=== PATIENT | female | born 1965 | race Caucasian/White ===

== ENCOUNTER 2024-10-17 10:38 | Outpatient (CLI) | payer BC, SELFPAY ==
--- NOTE | ~2024-10-17 | US_ITS ---
Pelvic ultrasound. Clinical History: Pelvic pain Technique: Realtime transabdominal and transvaginal scanning of the pelvis was performed. Color flow Doppler and Doppler spectral analysis were performed. Findings: The uterus is anteverted. The endometrial stripe has a thickness of 2 mm. No focal myometr ial mass is identified. Mildly complex cervical nabothian cysts present. Neither ovary seen. No adnexal mass seen. There is no evidence of free fluid in the cul de sac. Impression: No significant abnormality seen. Neither ovary visualized. Reviewed, dictated and finalized at location . Impression: No significant abnormality seen. Neither ovary visualized.
--- OUTSIDE RECORDS SUMMARY | 2024-10-17 11:26 | XMS_ITS | Clinical Summary ---
Author Organization [facility] Medical Office Building B Address [address] [place] [address] Care Team Providers Care Sweatband Perforator Name Role Phone Bhavik Rivas MD Primary Care Provider Jayna Holt MD Unavailable [phone] Vivek Bright MD Unavailable [phone] Allergies Active Allergy Reactions Criticality Noted Date Comments Other Rash Medium 02/27/2018 Uni solve Sulfa (Sulfonamide Antibiotics) Rash Reaction: rash, Sulfasalazine Rash Medium 12/20/2017 Medications magnesium oxide 400 mg magnesium capsule Take 400 mg by mouth 2 (two) times a day Active pimecrolimus (ELIDEL) 1 % cream Apply topically as needed Active triamterene-hy droCHLOROthiaz naseem 37.5-25 mg per tablet/capsule TAKE 1 TABLET BY MOUTH EVERY DAY 90 tablet 10/08/19 25 Active simvastatin (ZOCOR) 80 mg tablet TAKE 1 TABLET BY MOUTH EVERY DAY AT NIGHT 90 tablet 10/08/19 25 Active triamterene-hy droCHLOROthiaz naseem 37.5-25 mg per tablet/capsule TAKE 1 TABLET BY MOUTH EVERY DAY 100 tablet 07/14/20 24 025 Discontinued simvastatin (ZOCOR) 80 mg tablet TAKE 1 TABLET BY MOUTH EVERY DAY AT NIGHT 100 tablet 07/14/20 24 025 Discontinued Active Problems Problem Noted Date Diagnosed Date History of 2019 novel coronavirus disease (COVID -19) 01/22/2021 Well adult exam 01/22/2021 Assessment & Plan (02/06/2024 1:48 PM CDT): A(n) yearly well adult visit has been performed today. Zeinab Arteaga is not up to date on screening tests. She is in need of hep b screening and Cholesterol screening. She is not up to date on needed preventative vaccinations; She is in need of Zoster. We discussed healthy lifestyle habits, educational material has been given. Medications reviewed, changes documented as per the medical record and discussed with patient along with risks vs benefits. Return in 1 year Assessment & Plan (01/30/2023 12:59 PM CDT): A(n) yearly well adult visit has been performed today. Zeinab Arteaga is not up to date on screening tests. She is in need of Breast cancer screening and Cholesterol screening- mammogram due next month. She is not up to date on needed preventative vaccinations; She is in need of Zoster. We discussed healthy lifestyle habits, educational material has been given. Medications reviewed, changes documented as per the medical record and discussed with patient along with risks vs benefits. Return in 1 year Anemia 12/14/2013 Overview (11/02/2016): Anemia Pure hypercholesterolemia 12/14/2013 Overview (11/04/2016): PURE HYPERCHOLESTEROLEM Benign hypertension 12/14/2013 Overview (11/04/2016): BENIGN HYPERTENSION Resolved Problems Problem Noted Date Diagnosed Date Resolved Date Allergic contact dermatitis of eyelid of right eye 10/24/2018 01/22/2021 Assessment & Plan (10/24/2018 11:00 AM CDT): Since she continues to experience swelling of eyelid in the mornings, will do medrol dose yoselin. Then will apply eucrisa twice daily until healed. Call if no improvement over the next couple of weeks. F/u prn Immunizations Immunization Administration Dates Next Due Influenza, Quadrivalent, Spl it, Preservative Free, Intramuscular 04/27/2023 Influenza, Unspecified 07/31/2022(Deferr ed: Patient Refused),07/31/2021(Deferred: Patient Refused),07/31/2021(Deferred: Patient Refused),07/31/2020(Deferred: Patient Refused),04/30/2020,05/01/2019, 018,04/18/2017 Pfizer SARS-CoV-2 Monovalent Vaccination (12+ Yrs) PURPLE 12/22/2020,12/01/2020 Tdap 10/21/2020 Surgical History Surgery Date Site/Laterality Comments OTHER SURGICAL HISTORY 07/31/2012 - 07/30/2013 menorrhagia: D&C OTHER SURGICAL HISTORY 07/31/2012 - 07/30/2013 menometrorrhagia: endometrial ablation NOS LASIK 07/31/2006 - 07/30/2007 myopia: lasik COLONOSCOPY 12/06/2010 Medical History Medical History Date Comments Hx Other Medical myopia Hx Other Medical menorrhagia Hx Other Medical menometrorrhagi a; Outcome: improved Anemia Corrected after abla felecia surgery Clotting disorder Corrected with ablas ion surgery Infectious viral hepatitis Markers for C , however none present with 2nd test Hypertension Family History Medical History Relation Name Comments Esophageal cancer Father Cancer -es ophageal; Hypertension Father Hypertension; Breast cancer Mother Zuleyka Wall Cancer -breast ; Cancer Mother Zuleyka Wall Diabetes type II Mother Zuleyka Wall Diabetes -T ype II; Hypertension Mother Zuleyka Wall Hypertension; Stomach cancer Paternal Grandfather Pulmonary embolism Sister 3 Shijavon Rashes / Skin problems Sister 4 [facility] Relation Name Status Comments Father Maternal Grandfather Maternal Grandmother Mother Zuleyka Wall Paternal Grandfather Paternal Grandmother Sister 1 Alive Sister 2 Alive Sister 3 Shielia [address] Alive Social History Tobacco Use Types Packs/Day Years Used Date Smoking Tobacco: Never Passive Smoke Exposure: Never Smokeless Tobacco: Never Alcohol Use Standard Drinks/Week Comments Not Currently 0 (1 standard drink = 0.6 oz pur e alcohol) occasionally only Humiliation, Afraid, Rape, and Kick questionnair e Answer Date Recorded Within the last year, have y ou been afraid of your partner or ex-partner? No 01/24/2022 Within the last year, have y ou been humiliated or emotionally abused in other ways by your partner or ex-partner? No Within the last year, have y ou been kicked, hit, slapped, or otherwise physically hurt by your partner or ex-partner? No 01/24/2022 Within the last year, have y ou been raped or forced to have any kind of sexual activity by your partner or ex-partner? No 01/24/2022 Social Connection and Isolation Panel [NHANES] A nswer Date Recorded Frequency of Communication with Friends and Fami ly Not on file 01/25/2022 Frequency of Social Gatherings with Friends and Family Not on file 01/25/2022 Attends Alevism Services Not on file 01/25 Active Member of Clubs or Organizations Not on f ile 01/25/2022 Attends Club or Organization Meetings Not on maci e 01/25/2022 Are you , , di vorced, , never , or living with a partner? 01/25/2022 AUDIT-C Answer Date Recorded Q1: How often do you have a drink containing alc ohol? 2-4 times a month 01/24/2022 Q2: How many drinks containi ng alcohol do you have on a typical day when you are drinking? 1 or 2 01/24/2022 Q3: How often do you have si x or more drinks on one occasion? Never 01/24/2022 Overall Financial Resource Strain (CARDIA) Answe r Date Recorded How hard is it for you to pa y for the very basics like food, housing, medical care, and heating? Not hard at all 01/24/2022 PHQ-2 Answer Date Recorded PHQ-2 Total Score (If total score is 3 or more points, staff should administer the PHQ-9) 0 02/06/2024 [facility]ational Stress Questionnaire Answer Date Recorded Do you feel stress - tense, restless, nervous, or anxious, or unable to sleep at night because your mind is troubled all the time - these days? To some extent 01/24/2022 Exercise Vital Sign Answer Date Recorde d On average, how many days pe r week do you engage in moderate to strenuous exercise (like a brisk walk)? 7 days 01/22/2020 On average, how many minutes do you engage in exercise at this level? 30 min 01/22/2020 Hunger Vital Sign Answer Date Recorded Within the past 12 months, y ou worried that your food would run out before you got the money to buy more. Never true 01/25/20 22 Within the past 12 months, t he food you bought just didn't last and you didn't have money to get more. Never true 01/24/2022 PRAPARE - Transportation Answer Date Re corded In the past 12 months, has l ack of transportation kept you from medical appointments or from getting medications? No 12/30 In the past 12 months, has l ack of transportation kept you from meetings, work, or from getting things needed for daily living? No 01/24/2022 Housing Stability Vital Sign Answer Jayson e Recorded Unable to Pay for Housing in the Last Year Not o n file 01/24/2022 In the last 12 months, how many places have you lived? 2 01/24/2022 In the last 12 months, was t here a time when you did not have a steady place to sleep or slept in a alf (including now)? No 01/24/2022 Education Answer Date Recorded What is the highest level of school you have completed or the highest degree you have received? 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 Not on file Not on file Not on file Obstetrics History Para Term AB IAB SAB Ectopic Multiple Livin g Live Births 3 3 3 Date Outcome GA Total Labor Labor/2nd/3rd Weight Sex Type Anes PTL Jenni A1 A5 Name Clin Term Term Term Last Filed Vital Signs Vital Sign Reading Time Taken Comments Blood Pressure 120/80 02/06/2024 1:31 PM CDT Pulse 86 02/06/2024 1:31 PM CDT Temperature 36.1 C (96.9 F) 02/06/2024 1:31 PM CDT Respiratory Rate 14 02/06/2024 1:31 PM CDT Oxygen Saturation 98% 02/06/2024 1:31 PM CDT Inhaled Oxygen Concentration - - Weight 64 kg (141 lb) 02/06/2024 1:31 PM CDT Height 165.1 cm (5' 5 ) 02/06/2024 1:31 PM CDT Body Mass Index 23.46 02/06/2024 1:31 PM CDT Plan of Treatment Health Maintenance Due Date Last Done Comments Hepatitis B Screening 1981 Zoster Vaccine (1 of 2) 2013 Covid-19 Vaccine ( season) 2024 04/27/2023, 12/22/2020, 12/01/2020 Influenza Vaccine (#1) 2024 , 04/30/2020, 05/01/2019, Additional history exists Cervical Cancer Screening 10/08/2024 10/09/2023 Depression Screening 02/05/2025 02/06/2024, 01/26/2023, 01/24/2022, Additional history exists Regular Well Visit/Exam 18-64 02/05/2025 02/06/2024, 01/26/2023, 01/24/2022, Additional history exists Breast Cancer Screening-Mammogram 05/17/2025 05/17/2024, 03/25/2023, 02/23/2022, Additional history exists DTaP/Tdap/Td Vaccine (2 - Td or Tdap) 10/21/2030 10/21/2020 Colon Cancer Screening-Colonoscopy 08/02/2031 08/02/2021, 12/06/2010, 12/06/2010 Hepatitis C Screening Completed 05/11/2017, 017 Colon Cancer Screening-CT Colonography Discontinued 08/02/2021, 12/06/2010, 12/06/2010 Colon Cancer Screening-DNA Stool Discontinued 08/02/2021, 12/06/2010, 12/06/2010 Colon Cancer Screening-FIT Discontinued 08/02, 12/06/2010, 12/06/2010 Colon Cancer Screening-Sigmoidoscopy Discontinued 08/02/2021, 12/06/2010, 12/06/2010 Pneumococcal vaccine <65 Aged Out No longer eligible based on patient's age to complete this topic Procedures Procedure Name Priority Date/Time Associated Diagnosis Comments SCREENING MAMMOGRAM BILATERAL W MYRON Schedule Routine, Read Routine (OP Routine) 05/17/2024 8:19 AM CDT Screening mammogram, encounter for HM PAP SMEAR WITH HPV Routine 10/09/2023 3:24 PM CDT COLONOSCOPY 08/02/2021 7:26 AM SENIOR ENERGY ANALYST HEPATITIS C RNA, QUANTITATIVE, PCR Routine 05/11/2017 12:06 PM CDT Positive hepatitis C antibody test from Last 3 Months or Most Recently Relevant to Health Maintenance Results * Screening Mammogram Bilateral W Myron (05/17/2024 8:19 AM CDT) Anatomical Region Laterality Modality Breast Bilateral Mammography 05/17/2024 9:03 AM CDT Impressions 05/17/2024 9:03 AM CDT No evidence of malignancy in either breast. FINAL ASSESSMENT: BI-RADS Category 2: Benign. RECOMMENDATION: Recommend return for annual screening mammogram in 12 months. Electronically signed by: Addy Mar M.D. Narrative 05/17/2024 9:03 AM CDT EXAMINATION: BILATERAL SCREENING MAMMOGRAM COMPARISON: 03/25/2023, 02/23/2022, 02/12/2021, 02/05/2020 TECHNIQUE: Full-field 2D and digital breast tomosynthesis (DBT) images were obtained. CAD was utilized. BREAST PARENCHYMAL COMPOSITION: There are scattered areas of fibroglandular density. FINDINGS: A small benign-appearing oval circumscribed mass in the upper inner left breast, middle depth, has not suspiciously changed. There is no new suspicious finding in either breast on mammogram. us Self Screening Mammogram IMG MAMMO PROCEDURES Fi nal Result * HM PAP SMEAR WITH HPV (10/09/2023 3:24 PM CDT) us Historical Provider HEALTH MAINTENANCE Final Result * COLONOSCOPY (08/02/2021 7:26 AM SENIOR ENERGY ANALYST) Anatomical Region Laterality Modality Other Narrative Procedure Note Juliano Barba MD - 08/02/2021 7:26 AM CST [facility] Patient Name: Zeinab Munoz Procedure Date: 08/02/2021 7:26 AM Date of : 1965 Admit Type: Outpatient Age: 56 Gender: Female Attending MD: Juliano Barba M.D. Room: [facility] 2 Note Status: Finalized Patient Profile: Refer to note in patient chart for documentation of history and physical. Procedure: Colonoscopy Indications: Screening for colorectal malignant neoplasm, Last colonoscopy: November 2010 Referring MD: Bhavik Rivas M.D. Providers: Juliano Barba M.D. Impression: - Hemorrhoids found on perianal exam. - Diverticulosis in the sigmoid colon, in the descending colon and in the transverse colon. - The examination was otherwise normal. - No specimens collected. Recommendation: - Discharge patient to home. - Resume previous diet. - Continue present medications. - Repeat colonoscopy in 10 years for screening purposes. - Return to primary care physician as previously scheduled. Medicines: Propofol per Anesthesia Complications: No immediate complications. Estimated Blood Loss: Estimated blood loss: none. Procedure: Pre-Anesthesia Assessment: - This assessment was completed [Time ofAssessment] prior to the administration of sedation. The benefits, risks and alternatives of theprocedure and sedation were discussed and informed consentwas obtained. All questions were answered. Please referto the signed informed consent document in the medical record. The bowel preparation used was Miralax via single dose instruction. The bowel preparation used was bisacodyl tablets via single dose instruction.The scope was passed under direct vision. TheColonoscope [id number] was introduced through the anus and advanced to the the cecum, identified by appendiceal orifice and ileocecal valve. The colonoscopy was performed without difficulty. The patient tolerated the procedure well. The qualityof the bowel preparation was excellent. Findings: Hemorrhoids were found on perianal exam. A few small-mouthed diverticula were found in the sigmoid colon, descending colon and transverse colon. The exam was otherwise without abnormality. Electronically signed by Juliano Barba M.D. Juliano Barba M.D. 08/02/2021 8:24:59 AM Number of Addenda: 0 Note Initiated On: 08/02/2021 7:26 AM Procedure Code(s): --- Professional --- G0121, Colorectal cancer screening; colonoscopy on individual not meeting criteria for high risk Diagnosis Code(s): --- Professional --- K57.30, Diverticulosis of large intestine without perforation orabscess without bleeding K64.9, Unspecified hemorrhoids Z12.11, Encounter for screening for malignant neoplasm of colon CPT copyright 2019 [employer]. All rights reserved. The codes documented in this report are preliminary and upon senior windows systems administrator reviewmay be revised to meet current compliance requirements. Recognized by the [employer] for promoting quality in endoscopy Juliano Barba MD ENDOSCOPY PROCEDURES Final Re sult * Hepatitis C RNA, quantitative, PCR (05/11/2017 12:06 PM CDT) HCV RNA qn Undetected Undetected IUnits/mL BECKY BATISTA Comment: Result in log IU/mL is Undetected. ADDITIONAL INFORMATION The quantification range of this assay is 15 to 100,000,000 IU/mL (1.18 log to 8.00 log IU/mL). Testing was performed using the joseph HCV test ([employer] with the joseph 6800 System. Test Performed by: [facility] [address] [place] [address] Blood specimen (specimen) 05/11/2017 12:06 PM CDT 05/11/2017 3:32 PM CDT Bhavik Rivas MD LAB MICROBIOLOGY - GENERAL ORDERABLES Final Result BECKY [id number] Department of Laboratories [place], [place] [id number] from Last 3 Months or Most Recently Relevant to Health Maintenance Insurance [employer]ap OOS [employer] OOS BLUE ACC CHOICE OOS Advance Directives For more information, please contact: [phone] * Full Code (Latest Code Status on File) Date Activated Date Inactivated Comments 08/02/2021 7:25 AM 08/02/2021 1:16 PM Care Teams Sweatband Perforator Relationship Specialty Start Date End Date Bhavik Rivas MD PCP - General 10/28/16 Jayna Holt MD [address] [place] [address] Consulting Physician Dermatology 05/22/19 Vivek Bright MD [address] [place], [place] [id number] Referring Physician Obstetrics and Gynecology 02/06/24
--- OUTSIDE RECORDS SUMMARY | 2024-10-17 11:26 | XMS_ITS | Referral Summary ---
Author Organization [facility] Medical Office Building B Address [address] [place] [address] Care Team Providers Care Ripsaw Matcher Name Role Phone Bhavik Rivas MD Primary Care Provider Jayna Holt MD Unavailable [phone] Vivek Bright MD Unavailable [phone] Allergies Active Allergy Reactions Criticality Noted Date [...] Vaccination (12+ Yrs) PURPLE 12/22/2020,12/01/2020 Tdap 10/21/2020 Social History Tobacco Use Types Packs/Day Years [...] and Family Not on file 01/25/2022 Attends [employer] Services Not on file 01/25 Active Member [...] staff should administer the PHQ-9) 0 02/06/2024 [facility] - Occupational Stress Questionnaire Answer Date Recorded [...] place to sleep or slept in a detention (including now)? No 01/24/2022 Education Answer Date Recorded What is the highest level of school you have completed or the highest degree you have received? 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 Not on file Not on file Last Filed Vital Signs Vital Sign Reading [...] 02/06/2024 1:31 PM CDT Plan of Treatment Not on file Procedures Procedure Name Priority Date/Time Associated Diagnosis Comments SCREENING MAMMOGRAM BILATERAL W MYRON Schedule Routine, Read Routine (OP Routine) 05/17/2024 8:19 AM CDT Screening mammogram, encounter for HM PAP SMEAR WITH HPV Routine 10/09/2023 3:24 PM CDT COLONOSCOPY 08/02/2021 7:26 AM FLUME WORKER HEPATITIS C RNA, QUANTITATIVE, PCR Routine 05/11/2017 [...] SMEAR WITH HPV (10/09/2023 3:24 PM CDT) Historical Provider HEALTH MAINTENANCE Final Result * COLONOSCOPY (08/02/2021 7:26 AM FLUME WORKER) Anatomical Region Laterality Modality Other Narrative Procedure Note Juliano Barba MD - 08/02/2021 7:26 AM CST [facility] Patient Name: Zeinab Munoz Procedure Date: 08/02/2021 7:26 AM Date of : 1965 Admit Type: Outpatient Age: 56 Gender: Female Attending MD: Juliano Barba M.D. Room: [facility] ROOM 2 Note Status: Finalized Patient Profile: [...] scope was passed under direct vision. TheColonoscope [id number] was introduced through the anus and advanced [...] malignant neoplasm of colon CPT copyright 2019 [employer]. All rights reserved. The codes documented in this report are preliminary and upon certified procedural coder reviewmay be revised to meet current compliance requirements. Recognized by the [employer] for promoting quality in endoscopy us Juliano Barba MD ENDOSCOPY PROCEDURES Final Re sult * Hepatitis C RNA, quantitative, PCR (05/11/2017 12:06 PM CDT) HCV RNA qn Undetected Undetected IUnits/mL BECKY BATISTA Comment: Result in log IU/mL is Undetected. ADDITIONAL INFORMATION The quantification range of this assay is 15 to 100,000,000 IU/mL (1.18 log to 8.00 log IU/mL). Testing was performed using the joseph HCV test ([employer] with the joseph 6800 System. Test Performed by: [place] [address] Blood specimen (specimen) 05/11/2017 12:06 PM CDT 05/11/2017 3:32 PM CDT us Bhavik Rivas MD LAB MICROBIOLOGY - GENERAL ORDERABLES Final Result BECKY BATISTA [id number] Department [place] [address] from Last 3 Months or Most Recently Relevant to Health Maintenance Insurance BLUE ACCESS OOS Member Subscriber Plan / Payer (Ef fective 2015-Present) Name:Zeinab Arteaga Relation to Subscriber:Self Name:Zeinab Arteaga Payer ID:[id number] (NAIC) Type:[facility] Address: [address] [place] [address] BLUE ACCESS OOS Member Subscriber Plan / Payer (Ef fective 2015-Present) Name:Zeinab Arteaga Relation to Subscriber:Self Name:Zeinab Arteaga Payer ID:[id number] (NAIC) Type:[facility] Address: [address] [place] [address] BLUE ACC CHOICE OOS Member Subscriber Plan / Payer ( fective 2022-Present) Name:Zeinab Arteaga Member ID:[id number] Relation to Subscriber:Self Name:Zeinab Arteaga Subscriber ID:[id number] Payer ID:[id number] (NAIC) Type:[facility] Address: [address] [place] [address] Advance Directives For more information, please contact: [phone] * Full Code (Latest Code Status on File) Date Activated Date Inactivated Comments 08/02/2021 7:25 AM 08/02/2021 1:16 PM Care Teams Ripsaw Matcher Relationship Specialty Start Date End Date Bhavik Rivas MD PCP - General 10/28/16 Jayna Holt MD [address] [place] [address] Consulting Physician Dermatology 05/22/19 Vivek Bright MD [address] [place] [address] Referring Physician Obstetrics and Gynecology 02/06/24
== END 2024-10-17 10:39 | disposition home or self-care (01) ==
LOC: ANHIMG 10:41
PROVIDERS: PCP Family Medicine; Visit Provider Nurse Practitioner Family
DX: R10.2 Pelvic and perineal pain (principal)
CPT/HCPCS: 76830; 76856